=== PATIENT | male | born 1985 | race Caucasian/White ===

== ENCOUNTER 2016-11-13 10:49 | Outpatient (CLI) | payer SELFPAY | END 2016-11-13 10:50 | disposition EMS.NT | LOC: EMS 10:49 | PROVIDERS: ATTEND Surgery | DX: Z03.89 Encounter for observation for other suspected diseases and conditions ruled out (principal) ==

== ENCOUNTER 2018-02-20 13:34 | Emergency (ER) | payer MEDICAID ==
--- NOTE | 2018-02-20 13:38 | ED Physician Documentation ---
PD HPI MHE - Stated complaint Stated Complaint: MHE - History obtained from History obtained from: Patient, Police - History of Present Illness Primary symptom: Psychosis, Medical clearance, Other (The patient has been in snf for the last couple of weeks. He has been having worsening apparent psychosis and is evaluated by the DCR in the snf. He is brought here for medical clearance.). No: Aggressive behavior Timing - onset: How many days ago (several days of worsening chronic pyschosis.) Contributing factors: No: Substance abuse - ETOH, Substance abuse - drugs Similar symptoms before: Diagnosis (The patient does have a history of schizophrenia with lobsterman problems. He apparently has had increased psychotic symptoms over the last several days in snf. He denies any drug use and would not have had access to illicit drugs presumably for the last couple of weeks.) Review of Systems Unable to obtain: Other (somewhat nonsensical answers at times) Constitutional: denies: Fever Nose: denies: Rhinorrhea / runny nose, Congestion Throat: denies: Sore throat Cardiac: denies: Chest pain / pressure Respiratory: denies: Dyspnea, Cough GI: denies: Vomiting, Diarrhea Skin: denies: Rash, Lesions Neurologic: denies: Focal weakness, Headache, Head injury PD PAST MEDICAL HISTORY - Past Medical History Cardiovascular: None Respiratory: None Neuro: None Endocrine/Autoimmune: None Psych: Schizophrenia - Past Surgical History Past Surgical History: No - Present Medications Home Medications: Ambulatory Orders Medication Instructions Recorded Confirmed Home Medications Unobtainable 03/20/14 03/20/14 [HOME MEDICATIONS UNOBTAINABLE] - Allergies Allergies/Adverse Reactions: Allergies Allergy/AdvReac Type Severity Reaction Status Date / Time Unable to Assess Allergy Verified 03/20/14 00:15 - Social History Does the pt smoke?: No Smoking Status: Never smoker Does the pt drink ETOH?: Yes Does the pt have substance abuse?: Yes - Immunizations Immunizations are current?: Yes - POLST Patient has POLST: No PD ED PE NORMAL - Vitals Vital signs reviewed: Yes - General General: Alert and oriented X 3, Well developed/nourished, Other (intense stare and seems to be trying to keep himself contained. He has nonsensical and tangential answers with some apparent neologisms. He is able to tell me month and location. No paranoia noted. ) - HEENT HEENT: Ears normal, Moist mucous membranes, Pharynx benign - Neck Neck: Supple, no meningeal sign, No adenopathy - Cardiac Cardiac: RRR, No murmur - Respiratory Respiratory: Clear bilaterally - Abdomen Abdomen: Soft, Non tender - Derm Derm: Normal color, Warm and dry - Extremities Extremities: No tenderness to palpate, Normal ROM s pain - Neuro Neuro: Alert and oriented X 3, No motor deficit, Normal speech Eye Opening: Spontaneous Motor: Obeys Commands Verbal: Oriented GCS Score: 15 - Psych Psych: No: Normal affect (somewhat tense stature, intense stare and seems to need direction such as going to the bathroom and giving urine sample. He does not seem functional. ) Results - Vitals Vitals: Vital Signs - 24 hr 02/20/18 13:37 Temperature 37.2 C Heart Rate 66 Respiratory 16 Rate Blood Pressure 127/85 H O2 Saturation 99 Oxygen O2 Source Room air - Labs Labs: Laboratory Tests 02/20/18 02/20/18 02/20/18 14:00 14:00 14:00 WBC 6.7 RBC 4.71 Hgb 14.4 Hct 42.4 MCV 90.0 MCH 30.6 MCHC 34.0 RDW 13.4 Plt Count 220 MPV 7.6 Neut # (Auto) 4.4 Lymph # (Auto) 1.[address] [place] # (Auto) 0.7 Eos # (Auto) 0.1 Baso # (Auto) 0.1 Absolute Nucleated RBC 0.00 Nucleated RBC % 0.0 Sodium 135 Potassium 4.5 Chloride 98 L Carbon Dioxide 29 Anion Gap 8.0 BUN 17 Creatinine 0.8 Estimated GFR (MDRD) 113 Glucose 102 H Calcium 9.3 Total Bilirubin 0.4 AST 22 ALT 20 Alkaline Phosphatase 56 Total Protein 8.0 Albumin 4.7 Globulin 3.3 Albumin/Globulin Ratio 1.4 Lipase 29 TSH 1.49 Urine Color Urine Clarity Urine pH Ur Specific [place] Urine Protein Urine Glucose (UA) Urine Ketones Urine Occult Blood Urine Nitrite Urine Bilirubin Urine Urobilinogen Ur Leukocyte Esterase Ur Microscopic Review Urine Culture Comments Salicylates < 6.0 Urine Opiates Screen Ur Oxycodone Screen Urine Methadone Screen Ur Propoxyphene Screen Acetaminophen < 10 L Ur Barbiturates Screen Ur Tricyclics Screen Ur Phencyclidine Scrn Ur Amphetamine Screen U Methamphetamines Scrn U Benzodiazepines Scrn Urine Cocaine Screen U Cannabinoids Screen Ethyl Alcohol < 5.0 02/20/18 14:30 WBC RBC Hgb Hct MCV MCH MCHC RDW Plt Count MPV Neut # (Auto) Lymph # (Auto) [place] # (Auto) Eos # (Auto) Baso # (Auto) Absolute Nucleated RBC Nucleated RBC % Sodium Potassium Chloride Carbon Dioxide Anion Gap BUN Creatinine Estimated GFR (MDRD) Glucose Calcium Total Bilirubin AST ALT Alkaline Phosphatase Total Protein Albumin Globulin Albumin/Globulin Ratio Lipase TSH Urine Color YELLOW Urine Clarity CLEAR Urine pH 7.5 Ur Specific [place] 1.015 Urine Protein NEGATIVE Urine Glucose (UA) NEGATIVE Urine Ketones NEGATIVE Urine Occult Blood NEGATIVE Urine Nitrite NEGATIVE Urine Bilirubin NEGATIVE Urine Urobilinogen 0.2 (NORMAL) Ur Leukocyte Esterase NEGATIVE Ur Microscopic Review NOT INDICATED Urine Culture Comments NOT INDICATED Salicylates Urine Opiates Screen NEGATIVE Ur Oxycodone Screen NEGATIVE Urine Methadone Screen NEGATIVE Ur Propoxyphene Screen NEGATIVE Acetaminophen Ur Barbiturates Screen NEGATIVE Ur Tricyclics Screen NEGATIVE Ur Phencyclidine Scrn NEGATIVE Ur Amphetamine Screen NEGATIVE U Methamphetamines Scrn NEGATIVE U Benzodiazepines Scrn NEGATIVE Urine Cocaine Screen NEGATIVE U Cannabinoids Screen NEGATIVE Ethyl Alcohol PD MEDICAL DECISION MAKING - Sepsis Event Vital Signs: Vital Signs - 24 hr 02/20/18 13:37 Temperature 37.2 C Heart Rate 66 Respiratory 16 Rate Blood Pressure 127/85 H O2 Saturation 99 Oxygen O2 Source Room air Departure - Departure Clinical Impression: Grave disability, Acute psychosis Condition: Stable Record reviewed to determine appropriate education?: Yes
[2018-02-20] MEDS ORDERED: OLANZapine ODT 5 MG TABLET TL ONE (14:05)
[2018-02-20 14:18] LABS: BASOPHILS # (AUTO) 0.1 10^3/uL (0.0-0.1); BASOPHILS % (AUTO) 0.8 %; EOSINOPHILS # (AUTO) 0.1 10^3/uL (0.0-0.7); EOSINOPHILS % (AUTO) 2.1 %; HGB - HEMOGLOBIN 14.4 g/dL (14.0-18.0); LYMPHOCYTES # (AUTO) 1.4 10^3/uL (1.5-3.5); LYMPHOCYTES % (AUTO) 20.3 %; MEAN CORPUSCULAR HEMOGLOBIN 30.6 pg (27.0-31.0); MEAN PLATELET VOLUME 7.6 fL (7.4-11.4); MONOCYTES # (AUTO) 0.7 10^3/uL (0.0-1.0); MONOCYTES % (AUTO) 10.7 %; NEUTROPHILS # (AUTO) 4.4 10^3/uL (1.5-6.6); NEUTROPHILS % (AUTO) 66.1 %; PLT - PLATELET COUNT 220 10^3/uL (130-450); RED BLOOD COUNT 4.71 10^6/uL (4.70-6.10); RED CELL DISTRIBUTION WIDTH 13.4 % (12.0-15.0); WHITE BLOOD COUNT 6.7 x10^3/uL (4.8-10.8)
[2018-02-20 14:30] LABS: ALBUMIN 4.7 g/dL (3.2-5.5); ALBUMIN/GLOBULIN RATIO 1.4 (1.0-2.2); ALKALINE PHOSPHATASE 56 IU/L (42-121); ALT ALANINE AMINOTRANSFERASE 20 IU/L (10-60); AST ASPARTATE AMINOTRANSFERASE 22 IU/L (10-42); BILIRUBIN,TOTAL 0.4 mg/dL (0.2-1.0); BUN - BLOOD UREA NITROGEN 17 mg/dL (6-20); CALCIUM 9.3 mg/dL (8.5-10.3); CARBON DIOXIDE - CO2 29 mmol/L (21-32); CHLORIDE 98 mmol/L (101-111); CREATININE 0.8 mg/dL (0.6-1.2); GFR - MDRD 113 (>89); GLUCOSE 102 mg/dL (70-100); LIPASE 29 U/L (22-51); SALICYLATE < 6.0 mg/dL; SODIUM 135 mmol/L (135-145)
[2018-02-20 14:32] LABS: ACETAMINOPHEN < 10 ug/mL (10-30)
[2018-02-20 14:50] LABS: BILIRUBIN,URINE NEGATIVE (NEGATIVE); GLUCOSE, URINE (UA) NEGATIVE (NEGATIVE); KETONES,URINE (UA) NEGATIVE (NEGATIVE); LEUKOCYTE ESTERASE, URINE NEGATIVE (NEGATIVE); MUDS CUTOFF CONCENTRATIONS CUTOFF CONC BELOW:; NITRITE,URINE NEGATIVE (NEGATIVE); OCCULT BLOOD,URINE NEGATIVE (NEGATIVE); PH,URINE 7.5 PH (5.0-7.5); PROTEIN,URINE NEGATIVE (NEGATIVE); UROBILINOGEN,URINE 0.2 (NORMAL) E.U./dL (NORMAL)
[2018-02-20 14:51] LABS: CLARITY,URINE CLEAR (CLEAR)
[2018-02-20 15:04] LABS: AMPHETAMINE SCREEN,URINE NEGATIVE (NEGATIVE); BENZODIAZEPINES SCREEN, URINE NEGATIVE (NEGATIVE); COCAINE SCREEN URINE NEGATIVE (NEGATIVE); METHADONE SCREEN, URINE NEGATIVE (NEGATIVE); METHAMPHETAMINES SCREEN, URINE NEGATIVE (NEGATIVE); OPIATE SCREEN, URINE NEGATIVE (NEGATIVE); OXYCODONE SCREEN, URINE NEGATIVE (NEGATIVE); PROPOXYPHENE SCREEN, URINE NEGATIVE (NEGATIVE); TRICYCLIC ANTIDEPRESSANT,URINE NEGATIVE (NEGATIVE)
[2018-02-20 15:52] VITALS: BP 124/77
== END 2018-02-20 16:58 ==
LOC: ED 13:34
DX: F79 Unspecified intellectual disabilities (principal); F29 Unspecified psychosis not due to a substance or known physiological condition; F20.9 Schizophrenia, unspecified
CPT/HCPCS: 36415; 80053; 80306; 80307; 80320; 80329; 81003; 83690; 84443; 85025; 93005; 99282; 99284; A9270; 81001; 87086

== ENCOUNTER 2018-02-20 19:33 | Outpatient (CLI) | payer SELFPAY | END 2018-02-20 19:34 | LOC: EMS 19:33 | PROVIDERS: ATTEND Surgery | DX: F23 Brief psychotic disorder (principal) | CPT/HCPCS: A0425; A0428 ==

== ENCOUNTER 2019-03-11 10:58 | Outpatient (CLI) | payer MEDICAID | END 2019-03-11 10:59 | disposition critical access hospital (66) | LOC: EMS 10:58 | PROVIDERS: ATTEND Surgery | DX: R41.82 Altered mental status, unspecified (principal); W04.XXXA Fall while being carried or supported by other persons, initial encounter; Y92.811 Bus as the place of occurrence of the external cause | CPT/HCPCS: A0425; A0429; A0999 ==

== ENCOUNTER 2019-03-11 11:21 | Emergency (ER) | payer MEDICAID ==
[2019-03-11 11:34] VITALS: BP 134/87
[2019-03-11] MEDS ORDERED: OLANZapine 10 MG VIAL IM STA (11:38)
[2019-03-11] MEDS ORDERED: LORazepam 2 MG/ML VIAL IM STA (11:38)
--- NOTE | 2019-03-11 11:40 | ED Physician Documentation ---
PD HPI MHE - Stated complaint Stated Complaint: MHE - Chief complaint Chief Complaint: MHE - History obtained from History obtained from: EMS - History of Present Illness Primary symptom: Psychosis (33-year-old gentleman brought in by ambulance. He was reportedly on the bus and refused to get off speaking gibberish. Per the chart he has a history of schizophrenia. No history is available from the p atient because of psychosis.) Review of Systems Unable to obtain: Confused, Uncooperative PD PAST MEDICAL HISTORY - Past Medical History Cardiovascular: None Respiratory: None Neuro: None Endocrine/Autoimmune: None Psych: Schizophrenia - Past Surgical History Past Surgical History: No - Present Medications Home Medications: Ambulatory Orders Medication Instructions Recorded Confirmed Home Medications Unobtainable 03/20/14 03/20/14 [HOME MEDICATIONS UNOBTAINABLE] - Allergies Allergies/Adverse Reactions: Allergies Allergy/AdvReac Type Severity Reaction Status Date / Time Unable to Assess Allergy Verified 03/11/19 11:22 - Social History Does the pt smoke?: No Smoking Status: Never smoker Does the pt drink ETOH?: Yes Does the pt have substance abuse?: Yes - Immunizations Immunizations are current?: Yes - POLST Patient has POLST: No PD ED PE NORMAL - Vitals Vital signs reviewed: Yes - General General: Other (He is alert and oriented to place. He refuses to answer his name or where he lives. He is speaking nonsensical gibberish, flight of ideas.) - HEENT HEENT: PERRL, EOMI - Neck Neck: Supple, no meningeal sign, No bony TTP - Cardiac Cardiac: RRR, No murmur - Respiratory Respiratory: No respiratory distress, Clear bilaterally - Abdomen Abdomen: Soft, Non tender - Back Back: No CVA TTP, No spinal TTP - Derm Derm: Normal color, Warm and dry - Extremities Extremities: No edema, No calf tenderness / cord - Neuro Neuro: Other (Moving all extremities with excellent strength,) - Psych Psych: Other (Floridly psychotic) Results - Vitals Vitals: Vital Signs - 24 hr 03/11/19 11:28 Temperature 36.8 C Heart Rate 80 Respiratory 15 Rate Blood Pressure 134/87 H O2 Saturation 99 Oxygen O2 Source Room air PD MEDICAL DECISION MAKING - ED course ED course: Subsequent to my evaluation I thought he needed potentially inpatient treatment for psychosis. He walked out the doors. Kaitlynn Child was called and talk to him. Kaitlynn Child knows him and feels he was at his baseline and declined to bring him back for involuntary treatment. Departure - Departure Disposition: ED [place] Clinical Impression: Schizophrenia Qualifiers: Schizophrenia type: unspecified Qualified Code(s): F20.9 - Schizophrenia, unspecified
== END 2019-03-11 12:04 | disposition left against medical advice (07) ==
LOC: EDBD → ED 11:21
DX: F20.9 Schizophrenia, unspecified (principal)
CPT/HCPCS: 80053; 80307; 80320; 80329; 83690; 84443; 85025; 99281; 99283

== ENCOUNTER 2019-03-12 12:09 | Emergency (ER) | payer MEDICAID ==
[2019-03-12 12:36] LABS: BASOPHILS # (AUTO) 0.1 10^3/uL (0.0-0.1); BASOPHILS % (AUTO) 0.9 %; EOSINOPHILS # (AUTO) 0.1 10^3/uL (0.0-0.7); EOSINOPHILS % (AUTO) 2.5 %; HGB - HEMOGLOBIN 13.5 g/dL (14.0-18.0); LYMPHOCYTES % (AUTO) 18.8 %; MEAN CORPUSCULAR HEMOGLOBIN 30.8 pg (27.0-31.0); MEAN CORPUSCULAR HGB CONC 33.4 g/dL (32.0-36.0); MEAN CORPUSCULAR VOLUME 92.2 fL (80.0-94.0); MEAN PLATELET VOLUME 9.2 fL (7.4-11.4); MONOCYTES # (AUTO) 0.6 10^3/uL (0.0-1.0); MONOCYTES % (AUTO) 11.1 %; NEUTROPHILS # (AUTO) 3.7 10^3/uL (1.5-6.6); NEUTROPHILS % (AUTO) 66.3 %; PLT - PLATELET COUNT 203 10^3/uL (130-450); RED BLOOD COUNT 4.38 10^6/uL (4.70-6.10); RED CELL DISTRIBUTION WIDTH 12.6 % (12.0-15.0); WHITE BLOOD COUNT 5.5 x10^3/uL (4.8-10.8)
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
[2019-03-12 12:53] LABS: ACETAMINOPHEN < 10 ug/mL (10-30); ALBUMIN 4.4 g/dL (3.2-5.5); ALBUMIN/GLOBULIN RATIO 1.6 (1.0-2.2); ALKALINE PHOSPHATASE 49 IU/L (42-121); ALT ALANINE AMINOTRANSFERASE 11 IU/L (10-60); AST ASPARTATE AMINOTRANSFERASE 21 IU/L (10-42); BILIRUBIN,TOTAL 0.5 mg/dL (0.2-1.0); BUN - BLOOD UREA NITROGEN 18 mg/dL (6-20); CALCIUM 9.2 mg/dL (8.5-10.3); CARBON DIOXIDE - CO2 25 mmol/L (21-32); CHLORIDE 102 mmol/L (101-111); CREATININE 0.9 mg/dL (0.6-1.2); GFR - MDRD 98 (>89); GLUCOSE 100 mg/dL (70-100); LIPASE 31 U/L (22-51); SALICYLATE < 6.0 mg/dL; SODIUM 138 mmol/L (135-145); TOTAL PROTEIN 7.1 g/dL (6.7-8.2)
[2019-03-12] MEDS ORDERED: LORazepam 1 MG TABLET PO STA (15:30)
[2019-03-12] MEDS ORDERED: LORazepam 2 MG/ML VIAL IM STA (15:47)
[2019-03-12] MEDS ORDERED: HALOPERIDOL 5 MG/ML VIAL IM STA (15:47)
[2019-03-12 16:28] LABS: MUDS CUTOFF CONCENTRATIONS CUTOFF CONC BELOW:
[2019-03-12 16:33] LABS: BILIRUBIN,URINE NEGATIVE (NEGATIVE); GLUCOSE, URINE (UA) NEGATIVE (NEGATIVE); KETONES,URINE (UA) NEGATIVE (NEGATIVE); LEUKOCYTE ESTERASE, URINE NEGATIVE (NEGATIVE); NITRITE,URINE NEGATIVE (NEGATIVE); OCCULT BLOOD,URINE NEGATIVE (NEGATIVE); PROTEIN,URINE NEGATIVE (NEGATIVE); UROBILINOGEN,URINE 0.2 (NORMAL) E.U./dL (NORMAL)
[2019-03-12 16:35] LABS: CLARITY,URINE CLEAR (CLEAR)
[2019-03-12 16:45] LABS: AMPHETAMINE SCREEN,URINE NEGATIVE (NEGATIVE); BENZODIAZEPINES SCREEN, URINE NEGATIVE (NEGATIVE); COCAINE SCREEN URINE NEGATIVE (NEGATIVE); METHADONE SCREEN, URINE NEGATIVE (NEGATIVE); METHAMPHETAMINES SCREEN, URINE NEGATIVE (NEGATIVE); OPIATE SCREEN, URINE NEGATIVE (NEGATIVE); OXYCODONE SCREEN, URINE NEGATIVE (NEGATIVE); PROPOXYPHENE SCREEN, URINE NEGATIVE (NEGATIVE); TRICYCLIC ANTIDEPRESSANT,URINE NEGATIVE (NEGATIVE)
[2019-03-12 21:15] VITALS: BP 104/64
--- NOTE | 2019-03-12 21:39 | ED Physician Documentation ---
ED Addendum - Addendum Addendum: 03/12/19 21:[address] Suarez. Briefly this is a gentleman I saw yesterday who ambulated out of the department and return today. He was psychotic but after receiving Haldol he is not much. He was seen by the DCR who did not feel he met criteria for group home.
== END 2019-03-12 21:47 | disposition home or self-care (01) ==
LOC: EDBD → ED 12:09
DX: F39 Unspecified mood [affective] disorder (principal); F20.9 Schizophrenia, unspecified; R45.851 Suicidal ideations
CPT/HCPCS: 36415; 80053; 80306; 80307; 80320; 80329; 81003; 83690; 84443; 85025; 96372; 99281; 99283; J2060; 81001; 87086

== ENCOUNTER 2019-03-28 13:03 | Outpatient (CLI) | payer MEDICAID | END 2019-03-28 13:04 | disposition critical access hospital (66) | LOC: EMS 13:03 | PROVIDERS: ATTEND Surgery | DX: R40.20 Unspecified coma (principal) | CPT/HCPCS: A0425; A0429; A0999 ==

== ENCOUNTER 2019-03-28 13:32 | Emergency (ER) | payer MEDICAID ==
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
[2019-03-28 13:59] LABS: BASOPHILS # (AUTO) 0.1 10^3/uL (0.0-0.1); BASOPHILS % (AUTO) 0.8 %; EOSINOPHILS # (AUTO) 0.1 10^3/uL (0.0-0.7); EOSINOPHILS % (AUTO) 1.8 %; HGB - HEMOGLOBIN 14.2 g/dL (14.0-18.0); LYMPHOCYTES # (AUTO) 1.6 10^3/uL (1.5-3.5); LYMPHOCYTES % (AUTO) 21.2 %; MEAN CORPUSCULAR HEMOGLOBIN 30.2 pg (27.0-31.0); MEAN CORPUSCULAR HGB CONC 32.4 g/dL (32.0-36.0); MEAN CORPUSCULAR VOLUME 93.2 fL (80.0-94.0); MEAN PLATELET VOLUME 8.9 fL (7.4-11.4); MONOCYTES # (AUTO) 0.6 10^3/uL (0.0-1.0); MONOCYTES % (AUTO) 7.8 %; NEUTROPHILS # (AUTO) 4.9 10^3/uL (1.5-6.6); NEUTROPHILS % (AUTO) 67.6 %; PLT - PLATELET COUNT 220 10^3/uL (130-450); WHITE BLOOD COUNT 7.3 x10^3/uL (4.8-10.8)
[2019-03-28 14:19] LABS: ACETAMINOPHEN < 10 ug/mL (10-30); ALBUMIN 4.3 g/dL (3.2-5.5); ALBUMIN/GLOBULIN RATIO 1.4 (1.0-2.2); ALKALINE PHOSPHATASE 59 IU/L (42-121); ALT ALANINE AMINOTRANSFERASE 33 IU/L (10-60); AST ASPARTATE AMINOTRANSFERASE 34 IU/L (10-42); BILIRUBIN,TOTAL 0.5 mg/dL (0.2-1.0); BUN - BLOOD UREA NITROGEN 8 mg/dL (6-20); CALCIUM 8.9 mg/dL (8.5-10.3); CARBON DIOXIDE - CO2 25 mmol/L (21-32); CHLORIDE 100 mmol/L (101-111); CREATININE 0.7 mg/dL (0.6-1.2); GFR - MDRD 131 (>89); GLUCOSE 100 mg/dL (70-100); LIPASE 25 U/L (22-51); SALICYLATE < 6.0 mg/dL; SODIUM 137 mmol/L (135-145); TOTAL PROTEIN 7.4 g/dL (6.7-8.2)
[2019-03-28 14:26] LABS: MUDS CUTOFF CONCENTRATIONS CUTOFF CONC BELOW:
[2019-03-28 14:30] LABS: BILIRUBIN,URINE NEGATIVE (NEGATIVE); GLUCOSE, URINE (UA) NEGATIVE (NEGATIVE); KETONES,URINE (UA) NEGATIVE (NEGATIVE); LEUKOCYTE ESTERASE, URINE NEGATIVE (NEGATIVE); NITRITE,URINE NEGATIVE (NEGATIVE); OCCULT BLOOD,URINE NEGATIVE (NEGATIVE); PROTEIN,URINE NEGATIVE (NEGATIVE); UROBILINOGEN,URINE 0.2 (NORMAL) E.U./dL (NORMAL)
[2019-03-28 14:34] LABS: CLARITY,URINE CLEAR (CLEAR)
[2019-03-28 14:40] LABS: AMPHETAMINE SCREEN,URINE NEGATIVE (NEGATIVE); BENZODIAZEPINES SCREEN, URINE NEGATIVE (NEGATIVE); COCAINE SCREEN URINE NEGATIVE (NEGATIVE); METHADONE SCREEN, URINE NEGATIVE (NEGATIVE); METHAMPHETAMINES SCREEN, URINE NEGATIVE (NEGATIVE); OPIATE SCREEN, URINE NEGATIVE (NEGATIVE); OXYCODONE SCREEN, URINE NEGATIVE (NEGATIVE); PROPOXYPHENE SCREEN, URINE NEGATIVE (NEGATIVE); TRICYCLIC ANTIDEPRESSANT,URINE NEGATIVE (NEGATIVE)
[2019-03-28] MEDS ORDERED: HALOPERIDOL 5 MG/ML VIAL IVP ONE (18:39)
--- NOTE | 2019-03-29 13:30 | ED Physician Documentation ---
ED Addendum - Addendum Addendum: 03/29/19 13:29 Patient with acute, decompensated schizophrenia. DCR was consulted and placed on an involuntary hold. Patient will go to [facility]. Accepted by CHRISTIANNE Qureshi. COBRA forms completed. Departure - Departure Disposition: 65 Psych Hosp/Unit DC/Xfer Clinical Impression: Acute psychosis Schizophrenia Qualifiers: Schizophrenia type: unspecified Qualified Code(s): F20.9 - Schizophrenia, unspecified Condition: Stable Comments: I spoke with patient's step-father Ramos, who. Asher his brother is at that house. Less functional. speech doesn't make sense. Paranoid. has been to the hospital multiple.
[2019-03-29 14:53] VITALS: BP 126/85
== END 2019-03-29 15:38 ==
LOC: ED 13:32
DX: F20.9 Schizophrenia, unspecified (principal); F10.120 Alcohol abuse with intoxication, uncomplicated; Y90.6 Blood alcohol level of 120-199 mg/100 ml
CPT/HCPCS: 36415; 51701; 80053; 80306; 80307; 80320; 80329; 81001; 81003; 83690; 85025; 87086; 93005; 96361; 96374; 99285

== ENCOUNTER 2020-07-09 16:21 | Emergency (ER) | payer MEDICAID ==
[2020-07-09] MEDS ORDERED: OLANZapine 10 MG VIAL IM STA (17:59)
[2020-07-09 19:04] LABS: BASOPHILS # (AUTO) 0.1 10^3/uL (0.0-0.1); BASOPHILS % (AUTO) 0.7 %; EOSINOPHILS # (AUTO) 0.2 10^3/uL (0.0-0.7); EOSINOPHILS % (AUTO) 2.2 %; HGB - HEMOGLOBIN 13.1 g/dL (14.0-18.0); LYMPHOCYTES # (AUTO) 1.5 10^3/uL (1.5-3.5); MEAN CORPUSCULAR VOLUME 94.1 fL (80.0-94.0); MEAN PLATELET VOLUME 9.6 fL (7.4-11.4); MONOCYTES # (AUTO) 0.7 10^3/uL (0.0-1.0); NEUTROPHILS # (AUTO) 5.5 10^3/uL (1.5-6.6); NEUTROPHILS % (AUTO) 68.4 %; PLT - PLATELET COUNT 235 10^3/uL (130-450); RED BLOOD COUNT 4.22 10^6/uL (4.70-6.10); RED CELL DISTRIBUTION WIDTH 13.7 % (12.0-15.0)
[2020-07-09 19:08] LABS: MUDS CUTOFF CONCENTRATIONS CUTOFF CONC BELOW:
[2020-07-09 19:10] LABS: BILIRUBIN,URINE NEGATIVE (NEGATIVE); GLUCOSE, URINE (UA) NEGATIVE (NEGATIVE); KETONES,URINE (UA) NEGATIVE (NEGATIVE); LEUKOCYTE ESTERASE, URINE NEGATIVE (NEGATIVE); NITRITE,URINE NEGATIVE (NEGATIVE); OCCULT BLOOD,URINE NEGATIVE (NEGATIVE); PH,URINE 6.5 PH (5.0-7.5); PROTEIN,URINE NEGATIVE (NEGATIVE); UROBILINOGEN,URINE 0.2 (NORMAL) E.U./dL (NORMAL)
[2020-07-09 19:18] LABS: ACETAMINOPHEN < 10 ug/mL (10-30); ALBUMIN 4.5 g/dL (3.2-5.5); ALBUMIN/GLOBULIN RATIO 1.6 (1.0-2.2); ALKALINE PHOSPHATASE 47 IU/L (42-121); ALT ALANINE AMINOTRANSFERASE 19 IU/L (10-60); AST ASPARTATE AMINOTRANSFERASE 22 IU/L (10-42); BILIRUBIN,TOTAL 0.4 mg/dL (0.2-1.0); BUN - BLOOD UREA NITROGEN 22 mg/dL (6-20); CALCIUM 9.2 mg/dL (8.5-10.3); CARBON DIOXIDE - CO2 24 mmol/L (21-32); CHLORIDE 104 mmol/L (101-111); CREATININE 1.1 mg/dL (0.6-1.2); GLUCOSE 102 mg/dL (70-100); LIPASE 32 U/L (22-51); SALICYLATE < 6.0 mg/dL; TOTAL PROTEIN 7.4 g/dL (6.7-8.2)
[2020-07-09 19:23] LABS: AMPHETAMINE SCREEN,URINE NEGATIVE (NEGATIVE); BENZODIAZEPINES SCREEN, URINE NEGATIVE (NEGATIVE); CLARITY,URINE CLEAR (CLEAR); COCAINE SCREEN URINE NEGATIVE (NEGATIVE); METHADONE SCREEN, URINE NEGATIVE (NEGATIVE); METHAMPHETAMINES SCREEN, URINE NEGATIVE (NEGATIVE); OPIATE SCREEN, URINE NEGATIVE (NEGATIVE); OXYCODONE SCREEN, URINE NEGATIVE (NEGATIVE); PROPOXYPHENE SCREEN, URINE NEGATIVE (NEGATIVE); TRICYCLIC ANTIDEPRESSANT,URINE NEGATIVE (NEGATIVE)
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
[2020-07-09 21:56] LABS: C. PNEUMONIAE- RESP PCR PANEL NOT DETECTED
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
[2020-07-10 05:58] VITALS: BP 115/68
== END 2020-07-10 08:36 ==
LOC: ED 16:21
DX: F20.9 Schizophrenia, unspecified (principal); F23 Brief psychotic disorder; Z59.0 Homelessness; Z20.822 Contact with and (suspected) exposure to COVID-19
CPT/HCPCS: 0202U; 36415; 80053; 80306; 80307; 80320; 80329; 81003; 83690; 84443; 84484; 85025; 93005; 96372; 99285; 81001; 87086

== ENCOUNTER 2022-10-21 22:47 | Emergency (ER) | payer MEDICAID ==
[2022-10-21 23:05] VITALS: BP 150/112
[2022-10-21] MEDS ORDERED: OLANZapine ODT 5 MG TABLET TL ONE (23:16)
[2022-10-21] MEDS ORDERED: THIAMINE 100 MG TABLET PO STA (23:26)
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
[2022-10-22 00:09] LABS: BASOPHILS # (AUTO) 0.1 10^3/uL (0.0-0.1); BASOPHILS % (AUTO) 0.8 %; EOSINOPHILS # (AUTO) 0.2 10^3/uL (0.0-0.7); EOSINOPHILS % (AUTO) 2.1 %; HCT - HEMATOCRIT 47.3 % (42.0-52.0); HGB - HEMOGLOBIN 15.9 g/dL (14.0-18.0); LYMPHOCYTES # (AUTO) 1.4 10^3/uL (1.5-3.5); LYMPHOCYTES % (AUTO) 18.1 %; MEAN CORPUSCULAR HEMOGLOBIN 29.9 pg (27.0-31.0); MEAN CORPUSCULAR HGB CONC 33.6 g/dL (32.0-36.0); MEAN CORPUSCULAR VOLUME 88.9 fL (80.0-94.0); MEAN PLATELET VOLUME 9.8 fL (7.4-11.4); MONOCYTES # (AUTO) 0.8 10^3/uL (0.0-1.0); MONOCYTES % (AUTO) 11.3 %; NEUTROPHILS % (AUTO) 67.3 %; PLT - PLATELET COUNT 270 10^3/uL (130-450); RED BLOOD COUNT 5.32 10^6/uL (4.70-6.10); RED CELL DISTRIBUTION WIDTH 13.2 % (12.0-15.0); WHITE BLOOD COUNT 7.5 x10^3/uL (4.8-10.8)
[2022-10-22 00:20] LABS: ACETAMINOPHEN < 10 ug/mL (10-30); ALBUMIN 4.9 g/dL (3.2-5.5); ALBUMIN/GLOBULIN RATIO 1.3 (1.0-2.2); ALKALINE PHOSPHATASE 63 IU/L (42-121); ALT ALANINE AMINOTRANSFERASE 16 IU/L (10-60); AST ASPARTATE AMINOTRANSFERASE 20 IU/L (10-42); BILIRUBIN,TOTAL 0.9 mg/dL (0.2-1.0); BUN - BLOOD UREA NITROGEN 13 mg/dL (6-20); CALCIUM 9.8 mg/dL (8.5-10.3); CARBON DIOXIDE - CO2 24 mmol/L (21-32); CHLORIDE 102 mmol/L (101-111); CK- CREATINE KINASE 145 IU/L (22-269); CREATININE 0.8 mg/dL (0.6-1.2); ETOH - ETHANOL < 5.0 mg/dL; GFR - MDRD 109 (>89); GLUCOSE 104 mg/dL (70-100); LIPASE 28 U/L (22-51); MAGNESIUM 2.3 mg/dL (1.7-2.8); POTASSIUM 4.3 mmol/L (3.5-5.0); SALICYLATE < 6.0 mg/dL; SODIUM 136 mmol/L (135-145); TOTAL PROTEIN 8.6 g/dL (6.7-8.2)
[2022-10-22] MEDS ORDERED: MIDAZOLAM 10 MG/5 ML UDC PO STA (00:46)
[2022-10-22 01:45] LABS: MUDS CUTOFF CONCENTRATIONS CUTOFF CONC BELOW:
[2022-10-22 01:46] LABS: BILIRUBIN,URINE NEGATIVE (NEGATIVE); CLARITY,URINE CLEAR (CLEAR); GLUCOSE, URINE (UA) NEGATIVE (NEGATIVE); KETONES,URINE (UA) NEGATIVE (NEGATIVE); LEUKOCYTE ESTERASE, URINE NEGATIVE (NEGATIVE); NITRITE,URINE NEGATIVE (NEGATIVE); OCCULT BLOOD,URINE NEGATIVE (NEGATIVE); PH,URINE 5.5 PH (5.0-7.5); PROTEIN,URINE NEGATIVE (NEGATIVE); UROBILINOGEN,URINE 0.2 (NORMAL) E.U./dL (NORMAL)
[2022-10-22 01:57] LABS: AMPHETAMINE SCREEN,URINE NEGATIVE (NEGATIVE); BARBITURATE SCREEN,UR NEGATIVE (NEGATIVE); BENZODIAZEPINES SCREEN, URINE NEGATIVE (NEGATIVE); COCAINE SCREEN URINE NEGATIVE (NEGATIVE); METHADONE SCREEN, URINE NEGATIVE (NEGATIVE); METHAMPHETAMINES SCREEN, URINE NEGATIVE (NEGATIVE); OPIATE SCREEN, URINE NEGATIVE (NEGATIVE); OXYCODONE SCREEN, URINE NEGATIVE (NEGATIVE); PROPOXYPHENE SCREEN, URINE NEGATIVE (NEGATIVE); THC CANNABINOID SCREEN, URINE NEGATIVE (NEGATIVE); TRICYCLIC ANTIDEPRESSANT,URINE NEGATIVE (NEGATIVE)
== END 2022-10-22 07:15 | disposition left against medical advice (07) ==
LOC: ED 22:47
DX: F20.9 Schizophrenia, unspecified (principal); Z20.822 Contact with and (suspected) exposure to COVID-19
CPT/HCPCS: 36415; 80053; 80306; 80307; 80320; 80329; 81003; 82550; 83690; 83735; 84443; 85025; 87635; 93005; 99283; 99284; A9270; 81001; 87086

== ENCOUNTER 2022-10-23 10:37 | Outpatient (CLI) | payer MEDICAID, OTHER | END 2022-10-23 10:38 | disposition critical access hospital (66) | LOC: EMS 10:37 | DX: Z04.6 Encounter for general psychiatric examination, requested by authority (principal); R46.4 Slowness and poor responsiveness; R46.89 Other symptoms and signs involving appearance and behavior; R41.0 Disorientation, unspecified | CPT/HCPCS: A0425; A0429; A0999 ==

== ENCOUNTER 2022-10-23 11:16 | Emergency (ER) | payer MEDICAID ==
--- NOTE | 2022-10-23 11:19 | ED Physician Documentation ---
PD HPI MHE - Stated complaint Stated Complaint: AMS - History obtained from History obtained from: EMS, Police - Additional information Additional information: 37-year-old gentleman with history of psychosis is brought in under an SANYA. He was here the night before last and eloped well under an SANYA. He is brought back now. Patient is unable to give a history as he became catatonic when told he was being detained. PD PAST MEDICAL HISTORY - Past Medical History Cardiovascular: None Respiratory: None Neuro: None Endocrine/Autoimmune: None Psych: Schizophrenia - Past Surgical History Past Surgical History: No - Present Medications Home Medications: Ambulatory Orders Medication Instructions Recorded Confirmed No Known Home Medications 03/12/19 03/12/19 - Allergies Allergies/Adverse Reactions: Allergies Allergy/AdvReac Type Severity Reaction Status Date / Time No Known Drug Allergies Allergy Verified 03/12/19 14:15 - Social History Does the pt smoke?: No Smoking Status: Never smoker Does the pt drink ETOH?: Yes Does the pt have substance abuse?: Yes - Immunizations Immunizations are current?: Yes - POLST Patient has POLST: No PD ED PE NORMAL - Vitals Vital signs reviewed: Yes - General General: Other (His eyes are open and he is staring off in space. He responds to painful stimulus, but will not talk) - HEENT HEENT: PERRL, EOMI - Neck Neck: Supple, no meningeal sign, No bony TTP - Cardiac Cardiac: RRR, No murmur - Respiratory Respiratory: No respiratory distress, Clear bilaterally - Abdomen Abdomen: Non tender - Derm Derm: No rash - Neuro Eye Opening: Spontaneous Verbal: None Results - Vitals Vitals: Vital Signs - 24 hr 10/23/22 11:26 Temperature 98.3 C H Heart Rate 73 Respiratory 18 Rate Blood Pressure 125/76 O2 Saturation 98 Oxygen O2 Source Room air - Labs Labs: Laboratory Tests 10/23/22 10/23/22 10/23/22 11:35 11:35 11:35 WBC 13.0 H RBC 4.87 Hgb 14.8 Hct 45.3 MCV 93.0 MCH 30.4 MCHC 32.7 RDW 13.5 Plt Count 237 MPV 9.8 Neut # (Auto) 10.2 H Lymph # (Auto) 1.5 [place] # (Auto) 1.0 Eos # (Auto) 0.3 Baso # (Auto) 0.1 Absolute Nucleated RBC 0.00 Nucleated RBC % 0.0 Sodium 141 Potassium 4.1 Chloride 108 Carbon Dioxide 25 Anion Gap 8.0 BUN 22 H Creatinine 0.8 Estimated GFR (MDRD) 109 Glucose 107 H Calcium 9.1 Magnesium 2.1 Total Bilirubin 0.5 AST 21 ALT 15 Alkaline Phosphatase 74 Total Creatine Kinase 179 Total Protein 7.0 Albumin 4.1 Globulin 2.9 Albumin/Globulin Ratio 1.4 Lipase 33 TSH 0.66 Urine Color Urine Clarity Urine pH Ur Specific [place] Urine Protein Urine Glucose (UA) Urine Ketones Urine Occult Blood Urine Nitrite Urine Bilirubin Urine Urobilinogen Ur Leukocyte Esterase Ur Microscopic Review Urine Culture Comments Salicylates < 6.0 Urine Opiates Screen Ur Oxycodone Screen Urine Methadone Screen Ur Propoxyphene Screen Acetaminophen < 10 L Ur Barbiturates Screen Ur Tricyclics Screen Ur Phencyclidine Scrn Ur Amphetamine Screen U Methamphetamines Scrn U Benzodiazepines Scrn Urine Cocaine Screen U Cannabinoids Screen Ethyl Alcohol < 5.0 SARS-CoV-2 (PCR) 10/23/22 10/23/22 12:26 17:41 WBC RBC Hgb Hct MCV MCH MCHC RDW Plt Count MPV Neut # (Auto) Lymph # (Auto) [place] # (Auto) Eos # (Auto) Baso # (Auto) Absolute Nucleated RBC Nucleated RBC % Sodium Potassium Chloride Carbon Dioxide Anion Gap BUN Creatinine Estimated GFR (MDRD) Glucose Calcium Magnesium Total Bilirubin AST ALT Alkaline Phosphatase Total Creatine Kinase Total Protein Albumin Globulin Albumin/Globulin Ratio Lipase TSH Urine Color YELLOW Urine Clarity CLEAR Urine pH 6.5 Ur Specific [place] 1.020 Urine Protein NEGATIVE Urine Glucose (UA) NEGATIVE Urine Ketones TRACE Urine Occult Blood NEGATIVE Urine Nitrite NEGATIVE Urine Bilirubin NEGATIVE Urine Urobilinogen 1 (NORMAL) Ur Leukocyte Esterase NEGATIVE Ur Microscopic Review NOT INDICATED Urine Culture Comments NOT INDICATED Salicylates Urine Opiates Screen NEGATIVE Ur Oxycodone Screen NEGATIVE Urine Methadone Screen NEGATIVE Ur Propoxyphene Screen NEGATIVE Acetaminophen Ur Barbiturates Screen NEGATIVE Ur Tricyclics Screen NEGATIVE Ur Phencyclidine Scrn NEGATIVE Ur Amphetamine Screen NEGATIVE U Methamphetamines Scrn NEGATIVE U Benzodiazepines Scrn NEGATIVE Urine Cocaine Screen NEGATIVE U Cannabinoids Screen NEGATIVE Ethyl Alcohol SARS-CoV-2 (PCR) NOT DETECTED PD Medical Decision Making - ED course ED course: 37-year-old gentleman presents psychotic on an SANYA. Yesterday morning he eloped from the department and now was brought back. Because of that he is placed in seclusion. He is catatonic and we were able to get blood work and a COVID test but he was becoming less catatonic through his stay here and refused to give urine, in fact telling the nurse he was going to kill him when the nurse asked for urine. As such the DCR was dispatched without urine. Review of the chart shows many similar visits for psychosis without intoxicants on toxicology testing. DCR saw him and subsequently toxicology testing was negative. She is looking for a bed for him. Care to overnight emergency department physician pending psychiatric acceptance. Departure - Departure Clinical Impression: Acute psychosis Condition: Stable
--- NOTE | 2022-10-23 11:30 | ED Physician Documentation ---
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
[2022-10-23 11:42] LABS: BASOPHILS # (AUTO) 0.1 10^3/uL (0.0-0.1); BASOPHILS % (AUTO) 0.6 %; EOSINOPHILS # (AUTO) 0.3 10^3/uL (0.0-0.7); EOSINOPHILS % (AUTO) 1.9 %; HCT - HEMATOCRIT 45.3 % (42.0-52.0); HGB - HEMOGLOBIN 14.8 g/dL (14.0-18.0); LYMPHOCYTES # (AUTO) 1.5 10^3/uL (1.5-3.5); LYMPHOCYTES % (AUTO) 11.3 %; MEAN CORPUSCULAR HEMOGLOBIN 30.4 pg (27.0-31.0); MEAN CORPUSCULAR HGB CONC 32.7 g/dL (32.0-36.0); MEAN PLATELET VOLUME 9.8 fL (7.4-11.4); MONOCYTES % (AUTO) 7.6 %; NEUTROPHILS # (AUTO) 10.2 10^3/uL (1.5-6.6); NEUTROPHILS % (AUTO) 78.4 %; PLT - PLATELET COUNT 237 10^3/uL (130-450); RED BLOOD COUNT 4.87 10^6/uL (4.70-6.10); RED CELL DISTRIBUTION WIDTH 13.5 % (12.0-15.0)
[2022-10-23 11:55] LABS: ACETAMINOPHEN < 10 ug/mL (10-30); ALBUMIN 4.1 g/dL (3.2-5.5); ALBUMIN/GLOBULIN RATIO 1.4 (1.0-2.2); ALKALINE PHOSPHATASE 74 IU/L (42-121); ALT ALANINE AMINOTRANSFERASE 15 IU/L (10-60); AST ASPARTATE AMINOTRANSFERASE 21 IU/L (10-42); BILIRUBIN,TOTAL 0.5 mg/dL (0.2-1.0); BUN - BLOOD UREA NITROGEN 22 mg/dL (6-20); CALCIUM 9.1 mg/dL (8.5-10.3); CARBON DIOXIDE - CO2 25 mmol/L (21-32); CHLORIDE 108 mmol/L (101-111); CK- CREATINE KINASE 179 IU/L (22-269); CREATININE 0.8 mg/dL (0.6-1.2); ETOH - ETHANOL < 5.0 mg/dL; GFR - MDRD 109 (>89); GLUCOSE 107 mg/dL (70-100); LIPASE 33 U/L (22-51); MAGNESIUM 2.1 mg/dL (1.7-2.8); POTASSIUM 4.1 mmol/L (3.5-5.0); SALICYLATE < 6.0 mg/dL; SODIUM 141 mmol/L (135-145)
--- NOTE | 2022-10-23 15:54 | ED Physician Documentation ---
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 We will continue seclusion given recent elopement and inability to follow commands.
[2022-10-23 17:48] LABS: MUDS CUTOFF CONCENTRATIONS CUTOFF CONC BELOW:
[2022-10-23 17:49] LABS: BILIRUBIN,URINE NEGATIVE (NEGATIVE); GLUCOSE, URINE (UA) NEGATIVE (NEGATIVE); KETONES,URINE (UA) TRACE mg/dL (NEGATIVE); LEUKOCYTE ESTERASE, URINE NEGATIVE (NEGATIVE); NITRITE,URINE NEGATIVE (NEGATIVE); OCCULT BLOOD,URINE NEGATIVE (NEGATIVE); PH,URINE 6.5 PH (5.0-7.5); PROTEIN,URINE NEGATIVE (NEGATIVE); UROBILINOGEN,URINE 1 (NORMAL) E.U./dL (NORMAL)
[2022-10-23 18:00] LABS: CLARITY,URINE CLEAR (CLEAR)
[2022-10-23 18:03] LABS: AMPHETAMINE SCREEN,URINE NEGATIVE (NEGATIVE); BARBITURATE SCREEN,UR NEGATIVE (NEGATIVE); BENZODIAZEPINES SCREEN, URINE NEGATIVE (NEGATIVE); COCAINE SCREEN URINE NEGATIVE (NEGATIVE); METHADONE SCREEN, URINE NEGATIVE (NEGATIVE); METHAMPHETAMINES SCREEN, URINE NEGATIVE (NEGATIVE); OPIATE SCREEN, URINE NEGATIVE (NEGATIVE); OXYCODONE SCREEN, URINE NEGATIVE (NEGATIVE); PROPOXYPHENE SCREEN, URINE NEGATIVE (NEGATIVE); THC CANNABINOID SCREEN, URINE NEGATIVE (NEGATIVE); TRICYCLIC ANTIDEPRESSANT,URINE NEGATIVE (NEGATIVE)
--- NOTE | 2022-10-23 19:30 | ED Physician Documentation ---
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 He is now detained by DCR.
--- NOTE | 2022-10-23 23:26 | ED Physician Documentation ---
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
--- NOTE | 2022-10-24 03:37 | ED Physician Documentation ---
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
--- NOTE | 2022-10-24 06:14 | ED Physician Documentation ---
ED Addendum - Addendum Addendum: 10/24/22 06:11 The patient was signed out to me by Dr. Leigh, pending final disposition after presenting to the emergency department with psychosis, initially presenting with catatonia and later becoming agitated. Patient is gravely disabled and aggressive towards staff and did have to be placed in seclusion. Is not clear whether the patient is on any medications or is supposed to be. He was kept in seclusion during my shift, secondary to grave disability, agitation, flight ris k, and some aggressive behavior towards staff. He was excepted in transfer to [facility] by CHRISTIANNE Howell. Final impression: See original dictation Disposition: Transfer to psychiatric inpatient facility in stable condition.
[2022-10-24] MEDS ORDERED: OLANZapine ODT 5 MG TABLET TL ONE (08:34)
--- NOTE | 2022-10-24 08:37 | ED Physician Documentation ---
Restraint [id number]-we-[id number] - Immediate Situation Face to Face Evaluation Date: 10/24/22 Face to Face Evaluation Time: 08:35 Restraint Classification: Violent, seclusion Restraint Type: Seclusion - Patient's Reaction & Behaviors Safety: Physically safe, Compliant Verbal: Asking for information Harm: Potential harm to others Other: Resting quietly - Behavioral Condition Attitude: Guarded Behavior: Withdrawn Orientation: Person Mood: Other (slow thought processing, and use of elaborate words at times. 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
--- NOTE | 2022-10-24 09:03 | ED Physician Documentation ---
ED Addendum - Addendum Addendum: 10/24/22 08:59 The patient was assessed after change of shift. Nursing staff notified me that he renewal time for seclusion was just after change of shift. The tracking board said the renewal time was 1202 so not clear. Anyway the patient was assessed [id number] in the room. He certainly was having some insight into his being treated and detained. He asked for something to read. His word choice was somewhat elaborate rather than simple and direct words but he was working very hard at being controlled and communicative. He was cooperative. He was given some more water to drink. We will try to find a magazine or such. At this point the plan is for him to be detained and [place] ambulance is to arrive around 1030 this morning. The patient has history of schizophrenia and has not been on medications recently. I asked if he would like some medication to help with his thought processing and to start back on a regimen. He was accepting of that. We did give him a dose of Zyprexa and treatment of his underlying condition. Disposition: Transfer to acute psychiatric facility in stable condition Diagnoses: 1. Chronic schizophrenia with exacerbation 2. Medication noncompliance
[2022-10-24 10:58] VITALS: BP 112/78
== END 2022-10-24 10:58 ==
LOC: EDUNIT# → ED 11:16
DX: F20.9 Schizophrenia, unspecified (principal); F29 Unspecified psychosis not due to a substance or known physiological condition; Z91.148 Patient's other noncompliance with medication regimen for other reason; Z20.822 Contact with and (suspected) exposure to COVID-19
CPT/HCPCS: 36415; 80053; 80306; 80307; 80320; 80329; 81003; 82550; 83690; 83735; 84443; 85025; 87635; 93005; 99284; 99285; A9270; 81001; 87086

== ENCOUNTER 2023-01-25 13:59 | Outpatient (CLI) | payer MEDICAID, OTHER | END 2023-01-25 14:00 | disposition critical access hospital (66) | LOC: EMS 13:59 | DX: Z04.6 Encounter for general psychiatric examination, requested by authority (principal); R41.82 Altered mental status, unspecified | CPT/HCPCS: A0425; A0429; A0999 ==

== ENCOUNTER 2023-01-25 14:19 | Emergency (ER) | payer OTHER, MEDICAID ==
[2023-01-25 15:03] LABS: BASOPHILS % (AUTO) 0.9 %; EOSINOPHILS # (AUTO) 0.2 10^3/uL (0.0-0.7); HCT - HEMATOCRIT 41.5 % (42.0-52.0); HGB - HEMOGLOBIN 13.9 g/dL (14.0-18.0); LYMPHOCYTES # (AUTO) 1.2 10^3/uL (1.5-3.5); LYMPHOCYTES % (AUTO) 26.3 %; MEAN CORPUSCULAR HEMOGLOBIN 30.6 pg (27.0-31.0); MEAN CORPUSCULAR HGB CONC 33.5 g/dL (32.0-36.0); MEAN CORPUSCULAR VOLUME 91.4 fL (80.0-94.0); MEAN PLATELET VOLUME 9.6 fL (7.4-11.4); MONOCYTES # (AUTO) 0.4 10^3/uL (0.0-1.0); MONOCYTES % (AUTO) 9.7 %; NEUTROPHILS # (AUTO) 2.7 10^3/uL (1.5-6.6); NEUTROPHILS % (AUTO) 58.9 %; PLT - PLATELET COUNT 190 10^3/uL (130-450); RED BLOOD COUNT 4.54 10^6/uL (4.70-6.10); RED CELL DISTRIBUTION WIDTH 12.6 % (12.0-15.0); WHITE BLOOD COUNT 4.5 x10^3/uL (4.8-10.8)
[2023-01-25 15:12] LABS: ALBUMIN 4.5 g/dL (3.2-5.5); ALBUMIN/GLOBULIN RATIO 1.8 (1.0-2.2); ALKALINE PHOSPHATASE 61 IU/L (42-121); ALT ALANINE AMINOTRANSFERASE 15 IU/L (10-60); AST ASPARTATE AMINOTRANSFERASE 21 IU/L (10-42); BILIRUBIN,TOTAL 0.5 mg/dL (0.2-1.0); BUN - BLOOD UREA NITROGEN 9 mg/dL (6-20); CALCIUM 9.6 mg/dL (8.5-10.3); CARBON DIOXIDE - CO2 29 mmol/L (21-32); CHLORIDE 103 mmol/L (101-111); CK- CREATINE KINASE 318 IU/L (30-223); CREATININE 0.8 mg/dL (0.6-1.3); ETOH - ETHANOL < 10.0 mg/dL; GFR - MDRD 109 (>89); GLUCOSE 101 mg/dL (74-104); LIPASE 27 U/L (11-82); POTASSIUM 4.3 mmol/L (3.5-4.5); SODIUM 137 mmol/L (135-145)
--- NOTE | 2023-01-25 15:12 | ED Physician Documentation ---
History of Present Illness - Stated complaint Stated Complaint: MHE - Chief complaint Chief Complaint: MHE - Additonal information Additional information: 37-year-old male was brought into the emergency department for evaluation of mental health. He was reportedly released from [facility] under custody of DCR. On presentation the patient is not able to meaningfully participate in the history or answer questions. He replies to questions in a very tangential manner. Review of Systems Unable to obtain: Other (mental health) PD PAST MEDICAL HISTORY - Past Medical History Cardiovascular: None Respiratory: None Neuro: None Endocrine/Autoimmune: None Psych: Schizophrenia - Past Surgical History Past Surgical History: No - Present Medications Home Medications: Ambulatory Orders Medication Instructions Recorded Confirmed No Known Home Medications 03/12/19 03/12/19 - Allergies Allergies/Adverse Reactions: Allergies Allergy/AdvReac Type Severity Reaction Status Date / Time No Known Drug Allergies Allergy Verified 01/25/23 14:26 - Social History Does the pt smoke?: No Smoking Status: Never smoker Does the pt drink ETOH?: Yes Does the pt have substance abuse?: Yes - Immunizations Immunizations are current?: Yes - POLST Patient has POLST: No PD ED PE NORMAL - General General: No acute distress, Well developed/nourished - HEENT HEENT: Atraumatic - Neck Neck: Supple, no meningeal sign - Cardiac Cardiac: RRR, No murmur - Respiratory Respiratory: No respiratory distress - Derm Derm: Normal color, Warm and dry, No rash - Neuro Neuro: [employer] member 2-12 intact Eye Opening: Spontaneous Motor: Obeys Commands Verbal: Oriented GCS Score: 15 - Psych Psych: Other (Patient is psychotic. Does not have appropriate answers to her questions and they are transient and she will.) Results - Vitals Vitals: Vital Signs - 24 hr 01/25/23 01/25/23 14:26 19:00 Temperature 36.5 C 35.3 C L Heart Rate 83 90 Respiratory 16 16 Rate Blood Pressure 134/74 H 127/84 H O2 Saturation 98 99 Oxygen O2 Source Room air - Labs Labs: Laboratory Tests 01/25/23 01/25/23 01/25/23 14:54 14:54 15:24 WBC 4.5 L RBC 4.54 L Hgb 13.9 L Hct 41.5 L MCV 91.4 MCH 30.6 MCHC 33.5 RDW 12.6 Plt Count 190 MPV 9.6 Neut # (Auto) 2.7 Lymph # (Auto) 1.2 L [place] # (Auto) 0.4 Eos # (Auto) 0.2 Baso # (Auto) 0.0 Absolute Nucleated RBC 0.00 Nucleated RBC % 0.0 Sodium 137 Potassium 4.3 Chloride 103 Carbon Dioxide 29 Anion Gap 5.0 L BUN 9 Creatinine 0.8 Estimated GFR (MDRD) 109 Glucose 101 Calcium 9.6 Magnesium 2.0 Total Bilirubin 0.5 AST 21 ALT 15 Alkaline Phosphatase 61 Total Creatine Kinase 318 H Total Protein 7.0 Albumin 4.5 Globulin 2.5 Albumin/Globulin Ratio 1.8 Lipase 27 TSH 1.09 Urine Color Urine Clarity Urine pH Ur Specific [place] Urine Protein Urine Glucose (UA) Urine Ketones Urine Occult Blood Urine Nitrite Urine Bilirubin Urine Urobilinogen Ur Leukocyte Esterase Ur Microscopic Review Urine Culture Comments Salicylates < 1.5 Urine Opiates Screen Ur Oxycodone Screen Urine Methadone Screen Ur Propoxyphene Screen Acetaminophen < 0.1 Ur Barbiturates Screen Ur Tricyclics Screen Ur Phencyclidine Scrn Ur Amphetamine Screen U Methamphetamines Scrn U Benzodiazepines Scrn Urine Cocaine Screen U Cannabinoids Screen Ethyl Alcohol < 10.0 SARS-CoV-2 (PCR) NOT DETECTED 01/25/23 15:30 WBC RBC Hgb Hct MCV MCH MCHC RDW Plt Count MPV Neut # (Auto) Lymph # (Auto) [place] # (Auto) Eos # (Auto) Baso # (Auto) Absolute Nucleated RBC Nucleated RBC % Sodium Potassium Chloride Carbon Dioxide Anion Gap BUN Creatinine Estimated GFR (MDRD) Glucose Calcium Magnesium Total Bilirubin AST ALT Alkaline Phosphatase Total Creatine Kinase Total Protein Albumin Globulin Albumin/Globulin Ratio Lipase TSH Urine Color YELLOW Urine Clarity CLEAR Urine pH 7.0 Ur Specific [place] 1.010 Urine Protein NEGATIVE Urine Glucose (UA) NEGATIVE Urine Ketones NEGATIVE Urine Occult Blood NEGATIVE Urine Nitrite NEGATIVE Urine Bilirubin NEGATIVE Urine Urobilinogen 0.2 (NORMAL) Ur Leukocyte Esterase NEGATIVE Ur Microscopic Review NOT INDICATED Urine Culture Comments NOT INDICATED Salicylates Urine Opiates Screen NEGATIVE Ur Oxycodone Screen NEGATIVE Urine Methadone Screen NEGATIVE Ur Propoxyphene Screen NEGATIVE Acetaminophen Ur Barbiturates Screen NEGATIVE Ur Tricyclics Screen NEGATIVE Ur Phencyclidine Scrn NEGATIVE Ur Amphetamine Screen NEGATIVE U Methamphetamines Scrn NEGATIVE U Benzodiazepines Scrn NEGATIVE Urine Cocaine Screen NEGATIVE U Cannabinoids Screen NEGATIVE Ethyl Alcohol SARS-CoV-2 (PCR) PD Medical Decision Making - ED course Complexity details: reviewed results, re-evaluated patient, d/w patient ED course: 37-year-old male was brought to the emergency department under an SANYA for custody placed by the DCR. Recently released from [facility]. The patient does appear psychotic and that he cannot clearly answer appropriate questions and any questions are meant with tangential nonsensical statements. We have obtained the usual mental health screening labs and per my interpretation no acute worrisome abnormalities are noted. Urine drug screen and point was negative. Patient will be seen and evaluated by DCR but I would anticipate placement at this juncture. 2020: Patient has been accepted to [facility] in [place]. This is a DCR detainment. 2199: Patient will be signed out to my nighttime colleague to follow-up on any acute events pending transfer at nearly midnight. While here in the emergency department the patient has been quiet though calm and cooperative with the nursing and medical staff for any interventions necessary. He has not required any medication for sedation. Appropriate [facility] paperwork has been completed. Departure - Departure Disposition: [facility] Hosp/Unit DC/Xfer Clinical Impression: Psychosis Qualifiers: Psychosis type: unspecified psychosis type Qualified Code(s): F29 - Unspecified psychosis not due to a substance or known physiological condition Forms: PCP List
[2023-01-25 15:23] LABS: ACETAMINOPHEN < 0.1 ug/mL
[2023-01-25 15:24] LABS: SALICYLATE < 1.5 mg/dL
[2023-01-25 15:27] LABS: THYROID STIMULATING HORMONE 1.09 uIU/mL (0.34-5.60)
[2023-01-25 15:48] LABS: MUDS CUTOFF CONCENTRATIONS CUTOFF CONC BELOW:
[2023-01-25 16:06] LABS: BILIRUBIN,URINE NEGATIVE (NEGATIVE); GLUCOSE, URINE (UA) NEGATIVE (NEGATIVE); KETONES,URINE (UA) NEGATIVE (NEGATIVE); LEUKOCYTE ESTERASE, URINE NEGATIVE (NEGATIVE); NITRITE,URINE NEGATIVE (NEGATIVE); OCCULT BLOOD,URINE NEGATIVE (NEGATIVE); PROTEIN,URINE NEGATIVE (NEGATIVE); UROBILINOGEN,URINE 0.2 (NORMAL) E.U./dL (NORMAL)
[2023-01-25 16:09] LABS: CLARITY,URINE CLEAR (CLEAR)
[2023-01-25 16:19] LABS: AMPHETAMINE SCREEN,URINE NEGATIVE (NEGATIVE); BARBITURATE SCREEN,UR NEGATIVE (NEGATIVE); BENZODIAZEPINES SCREEN, URINE NEGATIVE (NEGATIVE); COCAINE SCREEN URINE NEGATIVE (NEGATIVE); METHADONE SCREEN, URINE NEGATIVE (NEGATIVE); METHAMPHETAMINES SCREEN, URINE NEGATIVE (NEGATIVE); OPIATE SCREEN, URINE NEGATIVE (NEGATIVE); OXYCODONE SCREEN, URINE NEGATIVE (NEGATIVE); PROPOXYPHENE SCREEN, URINE NEGATIVE (NEGATIVE); THC CANNABINOID SCREEN, URINE NEGATIVE (NEGATIVE); TRICYCLIC ANTIDEPRESSANT,URINE NEGATIVE (NEGATIVE)
[2023-01-26 10:57] VITALS: BP 118/80; O2SAT 99
== END 2023-01-26 00:02 ==
LOC: EDUNIT# → ED 14:19
DX: F29 Unspecified psychosis not due to a substance or known physiological condition (principal); Z20.822 Contact with and (suspected) exposure to COVID-19
CPT/HCPCS: 36415; 80053; 80306; 80307; 80320; 80329; 81001; 81003; 82550; 83690; 83735; 84443; 85025; 87086; 99284; 99285